=== PATIENT | female | born 1975 | race American Indian/Alaskan Native ===

== ENCOUNTER 2017-01-31 14:10 | Emergency (ER) | payer MEDICAID, OTHER ==
[~2017-01-31] VITALS: Ht 167.6 cm; Wt 76.3 kg
[2017-01-31 14:20] VITALS: BP 147/86
[2017-01-31] MEDS ORDERED: HYDROcodone/APAP 5/325 TABLET ONE (14:46)
[2017-01-31] MEDS ORDERED: HYDROcodone/APAP 5/325 TABLET PO ONE (15:00)
[2017-01-31] MEDS ORDERED: KETOROLAC 30 MG/1 ML ONE (15:45)
[2017-01-31] MEDS ORDERED: KETOROLAC 30 MG/1 ML IM ONE (16:00)
== END 2017-01-31 16:32 | disposition home or self-care (01) ==
LOC: ED 15:36
DX: M25.532 Pain in left wrist (principal); J45.909 Unspecified asthma, uncomplicated
CPT/HCPCS: 29125; 73110; 96372; 99284; J1885

== ENCOUNTER 2017-08-17 17:46 | Emergency (ER) | payer MEDICAID, OTHER ==
[~2017-08-17] VITALS: Ht 167.6 cm; Wt 85.0 kg
[2017-08-17 17:48] VITALS: BP 146/105
[2017-08-17] MEDS ORDERED: HYDROcodone/APAP 5/325 TABLET ONE (18:48)
[2017-08-17] MEDS ORDERED: HYDROcodone/APAP 5/325 TABLET PO PRN (19:00)
== END 2017-08-17 19:43 | disposition home or self-care (01) ==
LOC: ED 19:35
DX: S93.431A Sprain of tibiofibular ligament of right ankle, initial encounter (principal); F17.200 Nicotine dependence, unspecified, uncomplicated; X50.1XXA Overexertion from prolonged static or awkward postures, initial encounter; Y93.89 Activity, other specified; Y92.098 Other place in other non-institutional residence as the place of occurrence of the external cause; Y99.8 Other external cause status
CPT/HCPCS: 29515; 99284

== ENCOUNTER 2017-12-05 16:31 | Inpatient (IN) | payer MEDICAID, OTHER ==
[~2017-12-05] VITALS: Ht 167.6 cm; Wt 80.0 kg
[2017-12-05] MEDS ORDERED: ONDANSETRON ODT 4 MG PO ONE (17:00)
[2017-12-05] MEDS ORDERED: SODIUM CHLORIDE FLUSH 10ML SYR IVF ONE (17:00)
[2017-12-05] MEDS ORDERED: ONDANSETRON ODT 4 MG ONE (17:39)
[2017-12-05] MEDS ORDERED: MORPHINE SULFATE 4 MG/ML, 1ML ONE ×2 (17:39→18:53)
[2017-12-05 17:52] LABS: BASOPHILS # (AUTO) 0.03 x10^3/uL (0-0.1); BASOPHILS % (AUTO) 0 % (0-1); EOSINOPHILS # (AUTO) 0.08 x10^3/uL (0-0.4); EOSINOPHILS % (AUTO) 1 % (1-7); LYMPHOCYTES # (AUTO) 1.07 x10^3/uL (1-3.4); LYMPHOCYTES % (AUTO) 11 % (22-44); MD NO; MEAN CORPUSCULAR HEMOGLOBIN 29.8 pg (27.0-34.8); MEAN CORPUSCULAR HGB CONC 33.4 g/dL (32.4-35.8); MEAN CORPUSCULAR VOLUME 89.1 fL (80-100); MEAN PLATELET VOLUME 6.7 fL (7.4-10.4); MONOCYTES % (AUTO) 6 % (2-9); NEUTROPHILS # (AUTO) 7.61 x10^3/uL (1.8-6.8); NEUTROPHILS % (AUTO) 81 % (42-75); PLATELET COUNT 510 x10^3/uL (130-400); RED BLOOD COUNT 4.24 x10^6/uL (3.82-5.3); RED CELL DISTRIBUTION WIDTH 14.8 % (9.6-15.2)
[2017-12-05] MEDS: MORPHINE SULFATE 4 MG/ML, 1ML IVPush PRN ×2 (17:52→19:05)
[2017-12-05 17:57] LABS: MICROSCOPIC NOT IND
[2017-12-05 17:57] LABS: HCT (SEDRATE) 37.8 % (34.6-47.8)
[2017-12-05 17:58] LABS: ALBUMIN 2.6 g/dL (3.4-5.0); ANION GAP 12 mmol/L (5-15); CALCIUM 8.6 mg/dL (8.5-10.1); CHLORIDE 101 mmol/L (98-107)
[2017-12-05 18:08] LABS: CULTURE INDICATED? NO
[2017-12-05 18:09] LABS: ALANINE AMINOTRANSFERASE 23 U/L (12-78); ALKALINE PHOSPHATASE 133 U/L (45-117); BILIRUBIN,TOTAL 0.5 mg/dL (0.2-1.0); CREATININE 0.34 mg/dL (0.55-1.02); TOTAL PROTEIN 7.7 g/dL (6.4-8.2)
[2017-12-05] MEDS ORDERED: DEXAMETHASONE 4 MG/ML, 1ML IVPush ONE (19:30)
[2017-12-05] MEDS ORDERED: KETOROLAC 30 MG/1 ML IVPush ONE (19:30)
[2017-12-05] MEDS ORDERED: POLYETHYLENE GLYCOL 17 GM PACKET PO PRN (20:00)
[2017-12-05] MEDS ORDERED: ACETAMINOPHEN 325 MG TABLET PO PRN (20:00)
[2017-12-05] MEDS ORDERED: BISACODYL 10 MG SUPP PR PRN (20:00)
[2017-12-05] MEDS ORDERED: ONDANSETRON 2MG/ML, 2ML IVPush PRN (20:00)
[2017-12-05] MEDS: SODIUM CHLORIDE FLUSH 10ML SYR IVF SCH (21:32)
[2017-12-05] MEDS: NICOTINE 14MG/24 HR PATCH.TD24 TD SCH (21:44)
[2017-12-05 23:05] LABS: AMPHETAMINE SCREEN, URINE Positive (Negative); BARBITURATE SCREEN, URINE Negative (Negative); BENZODIAZEPINE SCREEN, URINE Negative (Negative); CANNABINOID SCREEN, URINE Positive (Negative); COCAINE SCREEN, URINE Negative (Negative); METHADONE SCREEN, URINE Negative (Negative); OPIATE SCREEN, URINE Negative (Negative)
[2017-12-06 01:31] VITALS: BP 123/86
[2017-12-06 06:06] LABS: ALANINE AMINOTRANSFERASE 20 U/L (12-78); ALBUMIN 2.5 g/dL (3.4-5.0); ANION GAP 7 mmol/L (5-15); CALCIUM 8.9 mg/dL (8.5-10.1); CHLORIDE 104 mmol/L (98-107); CREATININE 0.44 mg/dL (0.55-1.02)
[2017-12-06 06:08] LABS: ALKALINE PHOSPHATASE 126 U/L (45-117); BILIRUBIN,TOTAL 0.2 mg/dL (0.2-1.0); TOTAL PROTEIN 7.5 g/dL (6.4-8.2)
[2017-12-06 06:13] LABS: BASOPHILS # (AUTO) 0.01 x10^3/uL (0-0.1); BASOPHILS % (AUTO) 0 % (0-1); EOSINOPHILS % (AUTO) 0 % (1-7); LYMPHOCYTES # (AUTO) 0.43 x10^3/uL (1-3.4); LYMPHOCYTES % (AUTO) 6 % (22-44); MD NO; MEAN CORPUSCULAR HEMOGLOBIN 30.7 pg (27.0-34.8); MEAN CORPUSCULAR HGB CONC 34.6 g/dL (32.4-35.8); MEAN CORPUSCULAR VOLUME 88.8 fL (80-100); MEAN PLATELET VOLUME 6.7 fL (7.4-10.4); MONOCYTES # (AUTO) 0.05 x10^3/uL (0.2-0.8); MONOCYTES % (AUTO) 1 % (2-9); NEUTROPHILS # (AUTO) 6.25 x10^3/uL (1.8-6.8); NEUTROPHILS % (AUTO) 93 % (42-75); PLATELET COUNT 456 x10^3/uL (130-400); RED CELL DISTRIBUTION WIDTH 14.8 % (9.6-15.2)
[2017-12-06 07:09] VITALS: BP 120/83
[2017-12-06] MEDS: SENNA/DOCUSATE TABLET PO SCH (09:00)
[2017-12-06] MEDS: SODIUM CHLORIDE FLUSH 10ML SYR IVF SCH ×2 (09:00→20:17)
[2017-12-06] MEDS: HEPARIN 5,000 UNITS/ML, 1ML SQ SCH ×2 (13:00→20:17)
[2017-12-06 14:13] VITALS: BP 126/82
[2017-12-06 19:18] VITALS: BP 118/73
[2017-12-06] MEDS: NICOTINE 14MG/24 HR PATCH.TD24 TD SCH (20:18)
[2017-12-07 01:25] VITALS: BP 134/93
[2017-12-07] MEDS: HEPARIN 5,000 UNITS/ML, 1ML SQ SCH ×2 (05:00→12:42)
[2017-12-07 07:17] VITALS: BP 132/88
[2017-12-07] MEDS: SENNA/DOCUSATE TABLET PO SCH (08:58)
[2017-12-07] MEDS: SODIUM CHLORIDE FLUSH 10ML SYR IVF SCH (08:59)
[2017-12-07] MEDS ORDERED: PRED10TA PO (12:37)
[2017-12-07] MEDS ORDERED: PNEUMOCOCCAL 23 VACCINE IM-VACC ONE (13:00)
== END 2017-12-07 14:54 | disposition home or self-care (01) | DRG 545 ==
LOC: ED 18:10 → EDIP 19:19 → 3NE 20:18
PROVIDERS: ADMIT Internal Medicine; ATTEND Internal Medicine
DX: M06.9 Rheumatoid arthritis, unspecified (principal); E43 Unspecified severe protein-calorie malnutrition; E87.1 Hypo-osmolality and hyponatremia; F17.210 Nicotine dependence, cigarettes, uncomplicated; E55.9 Vitamin D deficiency, unspecified; Z68.28 Body mass index [BMI] 28.0-28.9, adult; Z88.8 Allergy status to other drugs, medicaments and biological substances; Z91.018 Allergy to other foods; Z91.013 Allergy to seafood; M35.3 Polymyalgia rheumatica; J45.909 Unspecified asthma, uncomplicated; M19.90 Unspecified osteoarthritis, unspecified site; Z82.49 Family history of ischemic heart disease and other diseases of the circulatory system; Z87.730 Personal history of (corrected) cleft lip and palate
CPT/HCPCS: 36415; 71045; 80053; 80307; 81003; 83605; 84550; 84703; 85025; 85651; 87040; 90732; 96374; 96376; 99285; J1100; J1885; Q0162; J7512

== ENCOUNTER 2018-01-14 14:52 | Emergency (ER) | payer MEDICAID, OTHER ==
[~2018-01-14] VITALS: Ht 167.6 cm; Wt 81.0 kg
[~2018-01-14 14:52] MED LIST: PRED10TA PO
[2018-01-14 14:56] VITALS: BP 147/100
[2018-01-14] MEDS ORDERED: DEXAMETHASONE 4 MG TABLET ONE (15:20)
[2018-01-14] MEDS ORDERED: DIPHENHYDRAMINE 50 MG CAPSULE ONE (15:20)
[2018-01-14] MEDS ORDERED: FAMOTIDINE 20 MG TABLET ONE (15:20)
[2018-01-14] MEDS ORDERED: DEXAMETHASONE 4 MG TABLET PO ONE (15:30)
[2018-01-14] MEDS ORDERED: DIPHENHYDRAMINE 50 MG CAPSULE PO PRN (15:30)
[2018-01-14] MEDS ORDERED: FAMOTIDINE 20 MG TABLET PO ONE (15:30)
== END 2018-01-14 16:01 | disposition home or self-care (01) ==
LOC: ED 15:32
DX: L25.9 Unspecified contact dermatitis, unspecified cause (principal); L74.0 Miliaria rubra; M06.9 Rheumatoid arthritis, unspecified; J45.909 Unspecified asthma, uncomplicated; F17.200 Nicotine dependence, unspecified, uncomplicated
CPT/HCPCS: 99284